=== PATIENT | male | born 1990 | race Caucasian/White ===

== ENCOUNTER 2016-08-10 09:23 | Emergency (ER) | payer MEDICAID ==
[~2016-08-10] VITALS: Ht 177.8 cm; Wt 89.0 kg
[~2016-08-10 09:23] MED LIST: ALBU8.5H5; IBUP-1542 PO
[2016-08-10 09:44] VITALS: Ht 177.8 cm; Wt 89.0 kg
[2016-08-10] MEDS ORDERED: KETOROLAC 60 MG INJ IM STA (11:58)
[2016-08-10] MEDS ORDERED: NAPR-688 PO (12:07)
[2016-08-10] MEDS ORDERED: HYDR-906 PO (12:07)
[2016-08-10] MEDS ORDERED: METH-70 PO (12:07)
--- NOTE | 2016-08-10 12:11 | ERD ---
ER Documentation Chief Complaint Date/Time DATE: 08/10/16 TIME: 12:08 Chief Complaint LOWER BACK PAIN SINCE YESTERDAY HPI This 26-year-old male began having lower back pain last night after he bent over to scrap picker a book. He's had no other trauma to the area. He didn't injure himself by straining his back one year ago at work. He is ambulatory to perform his normal functions but is worried about going to work with this spasm. He requests work note off for tomorrow. He has no pain rating down his leg. He is otherwise healthy. ROS All systems reviewed and are negative except as per history of present illness. Medications Home Meds Active Scripts Naproxen* (Naproxen*) 500 Mg Tablet, 500 MG PO BID, #14 TAB Prov:REBECCA BRITT DO 08/10/16 Methocarbamol* (Robaxin*) 750 Mg Tablet, 750 MG PO TID, #14 TAB Prov:REBECCA BRITT DO 08/10/16 Hydrocodone/Acetaminophen ([place] 5-325 Tablet) 1 Each Tablet, 1 EACH PO Q6, #14 TAB Prov:REBECCA BRITT DO 08/10/16 Ibuprofen* (Motrin*) 600 Mg Tab, 600 MG PO Q6, #20 TAB Prov:ROMARIO LEDBETTER PA-C 06/18/16 Reported Medications Albuterol Sulfate* (Albuterol Sulfate* HFA) 8.5 Gm Hfa.aer.ad 01/09/10 Allergies Allergies: Coded Allergies: No Known Drug Allergies (Verified Allergy, Mild, 08/10/16) PMhx/Soc History of Surgery: No Anesthesia Reaction: No Hx Neurological Disorder: No Hx Respiratory Disorders: Yes (ASTHMA) Hx Cardiac Disorders: No Hx Psychiatric Problems: No Hx Miscellaneous Medical Probl: No Hx Alcohol Use: Yes (OOC) Hx Substance Use: No Hx Tobacco Use: No Smoking Status: Unknown if ever smoked Physical Exam Vitals Vital Signs Date Time Temp Pulse Resp B/P Pulse Ox O2 Delivery O2 Flow Rate FiO2 08/10/16 09:44 98.2 70 19 132/75 98 Physical Exam Const: [] No distress sitting comfortably Head: Atraumatic Eyes: Normal Conjunctiva ENT: Normal External Ears, Nose and Mouth. Skin: No petechiae or rashes Back: No midline tenderness, right paraspinal muscle spasm palpable with some tenderness. No deformities. Spinal alignment is reserved. Ext: No cyanosis, or edema, no leg weakness 5 out of 5 strength bilateral lower extremities Results 24 hrs Current Medications Medications (Trade) Dose Ordered Sig/Christine Route PRN Reason Start Time Stop Time Status Last Admin Dose Admin Ketorolac Tromethamine (Toradol) 60 mg ONCE STAT IM 08/10/16 11:58 08/10/16 11:59 DC Procedures/MDM Healthy and all male with muscle spasm of the right paraspinal muscle area. A very low concern for any sort of fracture from bending over and picking up a book in a 26-year-old. See no reason for imaging at this time as patient has no midline tenderness. She given a shot of Toradol 60 mg IM in the ER which made him feel less pain. I'm discharging him with Robaxin, [place], naproxen and giving him a work note for tomorrow. Also improved follow-up with his primary care doctor in 2-3 days. Return precautions also given Departure Diagnosis: Primary Impression: Muscle spasm of back Condition: Stable Patient Instructions: Back Spasm, No Trauma Additional Instructions: Call your primary care doctor TOMORROW for an appointment during the next 2-3 days.See the doctor sooner or return here if your condition worsens before your appointment time. REBECCA BRITT DO Aug 10, 2016 12:11
[2016-08-10 12:49] VITALS: BP 130/72; PULSE 65; RESP 18; TEMP 98.2
== END 2016-08-10 12:49 | disposition home or self-care (01) ==
LOC: FTE 09:23
DX: M62.830 Muscle spasm of back (principal); J45.909 Unspecified asthma, uncomplicated
CPT/HCPCS: 96372; J1885; Z7502

== ENCOUNTER 2019-01-23 08:55 | Emergency (ER) | payer SELFPAY ==
[~2019-01-23] VITALS: Ht 170.2 cm; Wt 86.1 kg
[~2019-01-23 08:55] MED LIST changes: +HYDR-4011 PO; +METH750T93 PO; +NAPR-688 PO
[2019-01-23 09:07] VITALS: BP 156/66; PULSE 101; RESP 18; Ht 170.2 cm; Wt 86.1 kg
[2019-01-23] MEDS ORDERED: ALBU18HF INHALATION (09:29)
[2019-01-23] MEDS ORDERED: AZIT1PAC11 PO (09:31)
[2019-01-23] MEDS ORDERED: MED4DP PO (09:33)
[2019-01-23] MEDS ORDERED: AZIT500T3 PO (09:33)
[2019-01-23] MEDS ORDERED: AZIT250T PO (09:33)
--- NOTE | 2019-01-23 09:34 | ERD ---
ER Documentation Chief Complaint Chief Complaint ST FOR A WEEK, COUGH, WHEEZING ON AND OFF FOR 2 WEEKS. NO SOB, NO STRIDORS. HPI 29-year-old male presents to ED complaining of a cough and sore throat off and on for 3 weeks. He reports that he went to urgent care clinic 3 weeks ago and was prescribed amoxicillin, prednisone and cough syrup which helped his symptoms. However he states he was never 100% better and he feels that he is gotten worse in the past few days. He reports constant dry cough that is annoying to him. He reports slight shortness of breath and sore throat from coughing. He has been taking the cough syrup with no relief of his symptoms. He denies any fevers, chills, abdominal pain, nausea, vomiting, diarrhea. He reports a history of asthma in which she uses an albuterol inhaler but he states that this does not feel like his asthma. He denies any wheezing or signs of respiratory distress. Only past medical history is asthma that is intermittent and controlled ROS All systems reviewed and are negative except as per history of present illness. Medications Home Meds Active Scripts Methylprednisolone* (Medrol* DOSE PACK) 4 Mg/Dose-Pack Tab.ds.pk, 4 MG PO . DIRECTED, #5 PACKET Prov:SEBASTIAN DAVIDSON PA-C 01/23/19 Azithromycin* (Zithromax*) 500 Mg Tablet, 500 MG PO DAILY for 3 Days, TAB Prov:SEBASTIAN DAVIDSON PA-C 01/23/19 Azithromycin* (Zithromax*) 250 Mg Tablet, 250 MG PO .ZPACK DIRECTED, #6 TAB TAKE 500 MG (2 TABS) THE FIRST DAY THEN 250 MG (1 TAB) DAYS 2-5 Prov:SEBASTIAN DAVIDSON PA-C 01/23/19 Albuterol Sulfate* (Ventolin HFA*) 18 Gm Hfa.aer.ad, 2 PUFF INHALATION Q4H, #1 INHALER Prov:SEBASTIAN DAVIDSON PA-C 01/23/19 Naproxen* (Naproxen*) 500 Mg Tablet, 500 MG PO BID, #14 TAB Prov:REBECCA BRITT DO 08/10/16 Methocarbamol* (Robaxin*) 750 Mg Tablet, 750 MG PO TID, #14 TAB Prov:REBECCA BRITT DO 08/10/16 Hydrocodone/Acetaminophen ([place] 5-325 Tablet) 1 Each Tablet, 1 EACH PO Q6, #14 TAB Prov:REBECCA BRITT DO 08/10/16 Ibuprofen* (Motrin*) 600 Mg Tab, 600 MG PO Q6, #20 TAB Prov:ROMARIO LEDBETTER PA-C 06/18/16 Reported Medications Albuterol Sulfate* (Albuterol Sulfate* HFA) 8.5 Gm Hfa.aer.ad 01/09/10 Allergies Allergies: Coded Allergies: No Known Drug Allergies (Verified Allergy, Mild, 08/10/16) PMhx/Soc Medical and Surgical Hx: pt denies Surgical Hx History of Surgery: No Anesthesia Reaction: No Hx Neurological Disorder: No Hx Respiratory Disorders: Yes (ASTHMA) Hx Cardiac Disorders: No Hx Psychiatric Problems: No Hx Miscellaneous Medical Probl: No Hx Alcohol Use: Yes (OOC) Hx Substance Use: No Hx Tobacco Use: No Smoking Status: Never smoker FmHx Family History: No diabetes Physical Exam Vitals Vital Signs Date Temp Pulse Resp B/P (MAP) Pulse Ox O2 O2 Flow FiO2 Time Delivery Rate 01/23/19 97.8 101 18 156/66 98 09:07 (96) Physical Exam Const: No acute distress Head: Atraumatic Eyes: Normal Conjunctiva ENT: Normal External Ears, Nose and Mouth. Throat: pink/red and most. No exudates Neck: Full range of motion. Resp: Clear to auscultation bilaterally, no wheezing bilat Cardio: Regular rate and rhythm, no murmurs Abd: Soft, non tender, non distended. Skin: No petechiae or rashes Back: No midline or flank tenderness Ext: No cyanosis, or edema Neur: Awake and alert Psych: Normal Mood and Affect Procedures/MDM ED COURSE: The patient was stable throughout ED course. I kept the patient informed of laboratory and diagnostic imaging results throughout the ED course. PROCEDURES: none MEDICATIONS GIVEN: [None.] MEDICAL DECISION MAKING: Patient is a 29-year-old male complaining of a cough x3 weeks. He reports sore throat that is secondary to his coughing. The cough is a dry cough. Patient visited an urgent care clinic 3 weeks ago which she was prescribed amoxicillin, prednisone, cough syrup with moderate improvement of his symptoms. He reports that the cough has worsened in the past few days. He does report a history of asthma but denies any signs of respiratory distress. Physical exam was unrema rkable. he states that this does not feel like his asthma is acting up at this time. History and Physical along with other data not c/w emergent process including pneumonia, PE, abscess, pleural effusion or pneumothorax. vital signs were reviewed. Patient is afebrile. Patient was not hypoxic. Patient was hemodynamically stable. Patient was told to follow up with primary care for further care and management. PRESCRIPTION: Albuterol, Medrol Dosepak, azithromycin DISCHARGE: At this time, patient is stable for discharge and outpatient management. I have instructed the patient to follow-up with his/her primary care physician in 1-2 days. I have discussed with the patient the possibility of needing to see a specialist for further workup and imaging studies if symptoms persist. I have instructed the patient to promptly return to the ER for any new or worsening symptoms including increased pain, fever, nausea, vomiting, weakness or LOC. The patient expressed understanding of and agreement with this plan. All questions were answered. Home care instructions were provided. Disclaimer: Inadvertent spelling and grammatical errors are likely due to EHR/dictation software use and do not reflect on the overall quality of patient care. Also, please note that the electronic time recorded on this note does not necessarily reflect the actual time of the patient encounter. Departure Diagnosis: Primary Impression: Cough Condition: Fair Patient Instructions: Cough, Chronic, Uncertain Cause, (Adult) Referrals: [facility] YOU HAVE RECEIVED A MEDICAL SCREENING EXAM AND THE RESULTS INDICATE THAT YOU DO NOT HAVE A CONDITION THAT REQUIRES URGENT TREATMENT IN THE EMERGENCY DEPARTMENT. FURTHER EVALUATION AND TREATMENT OF YOUR CONDITION CAN WAIT UNTIL YOU ARE SEEN IN YOUR DOCTORS OFFICE WITHIN THE NEXT 1-2 DAYS. IT IS YOUR RESPONSIBILITY TO MAKE AN APPOINTMENT FOR FOLOW-UP CARE. IF YOU HAVE A PRIMARY DOCTOR --you should call your primary doctor and schedule an appointment IF YOU DO NOT HAVE A PRIMARY DOCTOR YOU CAN CALL OUR PHYSICIAN REFERRAL HOTLINE AT IF YOU CAN NOT AFFORD TO SEE A PHYSICIAN YOU CAN CHOSE FROM THE FOLLOWING [facility] CL[facility]ICS [facility] [address] [facility]. [facility] [address] [facility]. [facility] [address] [facility]. [facility] [address] [facility]. [facility] [address] [facility]. [facility] [address] [facility]. [facility] YOU HAVE RECEIVED A MEDICAL SCREENING EXAM AND THE RESULTS INDICATE THAT YOU DO NOT HAVE A CONDITION THAT REQUIRES URGENT TREATMENT IN THE EMERGENCY DEPARTMENT. FURTHER EVALUATION AND TREATMENT OF YOUR CONDITION CAN WAIT UNTIL YOU ARE SEEN IN YOUR DOCTORS OFFICE WITHIN THE NEXT 1-2 DAYS. IT IS YOUR RESPONSIBILITY TO MAKE AN APPOINTMENT FOR FOLOW-UP CARE. IF YOU HAVE A PRIMARY DOCTOR --you should call your primary doctor and schedule and appointment IF YOU DO NOT HAVE A PRIMARY DOCTOR YOU CAN CALL OUR PHYSICIAN REFERRAL HOTLINE AT . IF YOU CAN NOT AFFORD TO SEE A PHYSICIAN YOU CAN CHOSE FROM THE FOLLOWING [facility]: [facility] [address] [place] [address] [facility] [address] [place] [address] [facility] + [facility] [address] [place] [address] Additional Instructions: Call your primary care doctor TOMORROW for an appointment during the next 1-2 days.See the doctor sooner or return here if your condition worsens before your appointment time. SEBASTIAN DAVIDSON PA-C Jan 23, 2019 09:34
== END 2019-01-23 09:44 | disposition home or self-care (01) ==
LOC: FTE 08:55
DX: J45.901 Unspecified asthma with (acute) exacerbation (principal)
CPT/HCPCS: 99283